=== PATIENT | male | born 1965 | race Caucasian/White ===

== ENCOUNTER → 2017-11-06 11:14 | Outpatient (CLI) | payer MEDICARE, BC, SELFPAY ==
--- NOTE | 2017-11-06 11:19 | NVE_ITS ---
Venous Exam Indications: 729.5 Pain in limb. 729.81 Swelling of limb. IMPRESSIONS 1. There is no evidence of significant Reflux. 2. No evidence of deep or superficial vein thrombosis involving the left lower extremity Left lower extremity venous duplex evaluation. Doppler flow study including spectral analysis, color and gomez scale imaging. Location: Vascular laboratory. Patient status: Outpatient. CRITICAL FINDINGS - Reported to: Shania - Read back and verified. - 11/06/17 - 1145 - None Tables: Venous flow and imaging: + + + + Location Overall Flow properties + + + + Left common femoral Patent Normal phasicity; spontaneous; normal augmentation; compressible + + + + Left saphenofemoral junction Patent Compressible + + + + Left profunda femoral Patent Compressible + + + + Left femoral Patent Normal phasicity; spontaneous; normal augmentation; compressible + + + + Left greater saphenous Patent Normal phasicity; spontaneous; normal augmentation; compressible + + + + Left popliteal Patent Normal phasicity; spontaneous; normal augmentation; compressible + + + + Left posterior tibial Patent Compressible + + + + Left peroneal Difficult study + + + + Left gastrocnemius Patent Compressible + + + + Left soleal Patent Compressible + + + + (Report amended ) Electronically signed by: Kit Torres [id number]
--- NOTE | 2017-11-06 11:57 | XR_ITS ---
XR knee LT 3V HISTORY: Pain and swelling left knee ITS.REASON: LEFT MEDIAL KNEE PAIN ORDERING PHYSICIAN: Kelvin Aguillon MD PATIENT AGE: 51 years COMPARISON: None FINDINGS: No fracture or dislocation. No lytic or blastic change. Normal mineralization. No significant arthritic changes evident. No other significant findings IMPRESSION: Negative Knee
== END ==
PROVIDERS: PCP Family Medicine; Visit Provider Family Medicine
DX: M79.605 Pain in left leg (principal)
CPT/HCPCS: 73562; 93971

== ENCOUNTER → 2017-11-12 10:00 | Outpatient (CLI) | payer MEDICARE, BC, SELFPAY ==
--- NOTE | 2017-11-12 10:05 | MR_ITS ---
MR knee LT wo con Ordering Physician: Kelvin Aguillon MD Patient Age: 51 years: Male HISTORY: ITS.REASON: LEFT MEDIAL KNEE PAIN 1 week.. Pain now severe.. Swelling. TECHNIQUE: Multiplanar multisequence imaging 1.5 T MR COMPARISON :The 11/06/2017 left knee 3 view FINDINGS Suggestion of a very subtle thin rim of osteochondral irregularity along the medial margin of medial femoral condyle.., Most more evident towards its posterior aspect... Beneath this area and throughout the medial femoral condyle there is associated Prominent increased bone signal,. This signal at the medial femoral condyle most evident in pronounced just beneath this subtle rim of osteochondral irregularity, here here along the medial margin of the medial femoral condyle Medial Meniscus: Just beneath the above features I would note the posterior horn and posterior medial aspect of the medial meniscus appears mildly swollen and irregular with slight increased intrameniscal signal mild this is most evident towards the posterior meniscal root. No definitive meniscal surface disruption.. Overall Most likely grade 2 type degenerative signal changes.. Most evident towards the posterior meniscal root. . Moderate joint effusion most evident medially. Lateral Meniscus: appears intact Satisfactory patellofemoral relationships on axial image... Perhaps Scant osteochondral irregularity likely at the lateral margin lateral facet patella. Possible thin plica at suprapatellar bursa. The femoral attachment medial patellofemoral ligament is t ill-defined but there is no displacement of patella to raise concern on imaging. Correlation required The ACL and PCL appear intact. Patellar tendon with slight undulation and some minimal signal changes which most likely due to magic angle artifact.. Quadriceps tendon overall intact with only some mild edema along slips Medial & lateral collateral ligament intact. Prominent subcutaneous edema about the knee. Circumferential but Most evident at medial and posterior subcutaneous soft tissues. This requires correlation is evident trauma to this region or is there are diffuse edematous state. Generalized swelling at the left leg. IMPRESSION 1. Extensive bone edema /& bone signal changes throughout the medial femoral condyle.. Increased bone signal changes most pronounced just beneath medial face & beneath the minimal thin rim of osteochondral irregularity, seen along the medial margin of medial femoral condyle. Remain suspect of recent trauma, either injury or direct blow along medial aspect of medial femoral condyle, vs minimal repetitive injury which may have induced these changes... Orthopedic follow-up suggested 2. Joint effusion. 3. Prominent subcutaneous edema Surrounding the knee, requires correlation. 4. No meniscal surface tear. No definitive meniscal tear.. Only Slight increased intrameniscal signal posterior horn of medial meniscus-which may reflect meniscal contusion/edema vs grade 2 degenerative signal changes. The cruciate and collateral ligaments intact
== END ==
PROVIDERS: Family Provider Family Medicine; PCP Family Medicine; Visit Provider Family Medicine
DX: M25.562 Pain in left knee (principal); M25.462 Effusion, left knee
CPT/HCPCS: 73721

== ENCOUNTER → 2020-04-12 12:18 | Outpatient (CLI) | payer MEDICARE, BC, SELFPAY ==
--- NOTE | 2020-04-12 12:28 | XR_ITS ---
PROCEDURE: XR CHEST 2V CLINICAL HISTORY: PLEURAL EFFUSION RT SIDE The COMPARISON: No exams were available for comparison FINDINGS: Borderline cardiomegaly without failure. Coronary artery stent is present. There are no previous exams available for comparison. There is increased density in the right lung base laterally consistent with a moderate-sized pleural effusion versus pleural thickening. There are air-fluid levels in this region as well. Empyema is a consideration. Please correlate with patient's clinical findings. CT chest with contrast may aid for further evaluation. The left lung is clear. No acute bony anomalies apparent. IMPRESSION: Right-sided pleural effusion with multiple air-fluid levels raising the suspicion of empyema. Please correlate with clinical findings. Suggest chest CT with contrast for further evaluation. Dictated by: Kit Torres MD 04/12/2020 13:22 Electronically signed by Kit Torres MD in [place] 04/12/2020 13:22
== END ==
PROVIDERS: PCP Family Medicine; Visit Provider Family Medicine
DX: J90 Pleural effusion, not elsewhere classified (principal)
CPT/HCPCS: 71046

== ENCOUNTER → 2020-04-15 09:11 | Outpatient (CLI) | payer MEDICARE, BC, SELFPAY ==
--- NOTE | 2020-04-15 09:18 | XR_ITS ---
PROCEDURE: XR CHEST 2V CLINICAL HISTORY: PLEURAL EFFUSION, RIGHT Follow-up effusion COMPARISON: CR XR CHEST 2V from 04/12/2020 FINDINGS: The cardiomediastinal silhouette and pulmonary vascularity are within normal limits. Right-sided pleural effusion with air-fluid levels in the right lower lung zone and right midlung with parenchymal opacity in the right midlung laterally once again noted overall not significantly changed. No acute bony abnormalities. IMPRESSION: Overall no change in the complex density in the right mid lower lung zone consistent with effusion and/or pleural thickening/volume loss with scattered air-fluid levels which may represent empyema along with consolidation in the right lower and mid lung zone. Dictated b Kit Torres MD 04/15/2020 13:45 Kit Torres MD in [place] 04/15/2020 13:45
== END ==
PROVIDERS: PCP Family Medicine; Visit Provider Family Medicine
DX: J90 Pleural effusion, not elsewhere classified (principal)
CPT/HCPCS: 71046

== ENCOUNTER → 2020-04-29 14:40 | Outpatient (CLI) | payer MEDICARE, BC, SELFPAY ==
--- NOTE | 2020-04-29 14:46 | XR_ITS ---
PROCEDURE: XR CHEST 2V CLINICAL HISTORY: PLEURAL EFFUSION, RIGHT Follow-up pleural effusion COMPARISON: CR XR CHEST 2V from 04/12/2020 CR XR CHEST 2V from 04/15/2020 FINDINGS: The cardiomediastinal silhouette and pulmonary vascularity are within normal limits. No change in the medium-sized right effusion with scattered air-fluid levels on the right. The left lung is clear. IMPRESSION: Overall no change in the right pleural effusion/pleural thickening with multiple air-fluid levels on the right suggesting loculated hydro pneumothoraces. Empyema is a consideration. CT scan of the chest with contrast may provide further evaluation. Dictated by: Kit Torres MD 04/29/2020 15:29 Kit Torres MD in [place] 04/29/2020 15:29
== END ==
PROVIDERS: PCP Family Medicine; Visit Provider Family Medicine
DX: J90 Pleural effusion, not elsewhere classified (principal)
CPT/HCPCS: 71046